=== PATIENT | female | born 1985 | race Caucasian/White ===

== ENCOUNTER 2021-11-03 22:31 | Emergency (ER) | payer MEDICAID ==
[~2021-11-03] VITALS: Ht 180.3 cm; Wt 110.9 kg
[2021-11-03] MEDS ORDERED: LEXAPRO 10MG10 MG PO (22:55)
[2021-11-03 23:16] LABS: BASO # 0.04 K/mm3 (0.02-0.10); EOS # 0.05 K/mm3 (0.04-0.40); EOS % 0.4 % (1.0-5.0); HEMATOCRIT 44.5 % (37.0-47.0); HEMOGLOBIN 14.8 g/dL (12.5-16.0); LYMPH# 1.43 K/mm3 (1.50-4.00); MEAN CELL VOLUME 89 fl (78-100); MEAN CORPUSCULAR HEMOGLOBIN 30 pg (27-31); MEAN CORPUSCULAR HGB CONC 33 g/dL (33-37); MEAN PLATELET VOLUME 11.3 fl (7.4-10.4); MONO # 0.66 K/mm3 (0.20-0.80); NEU # 10.13 K/mm3 (1.40-6.50); PLATELET COUNT 292 K/mm3 (130-400); RED BLOOD COUNT 5.01 M/mm3 (4.10-5.30); RED CELL DISTRIBUTION WIDTH 12.9 % (11.5-14.5); WHITE BLOOD COUNT 12.3 K/mm3 (4.8-10.8)
[2021-11-03 23:25] LABS: POTASSIUM 3.8 mmol/L (3.5-5.1)
[2021-11-03 23:26] LABS: CALCIUM 9.4 mg/dL (8.3-10.5)
[2021-11-03 23:27] LABS: TOTAL PROTEIN 6.9 g/dL (6.4-8.3)
[2021-11-03 23:29] LABS: TOTAL BILIRUBIN 0.3 mg/dL (0.2-1.2)
[2021-11-04 01:32] LABS: URINE APPEARANCE HAZY; URINE BILIRUBIN NEGATIVE (NEGATIVE); URINE BLOOD NEGATIVE (NEGATIVE); URINE COLOR YELLOW; URINE GLUCOSE NEGATIVE (NEGATIVE); URINE KETONE NEGATIVE (NEGATIVE); URINE LEUKOCYTE ESTERASE TRACE (NEGATIVE); URINE NITRATE NEGATIVE (NEGATIVE); URINE PROTEIN(semi-quant) TRACE (NEGATIVE); URINE UROBILINOGEN NORMAL (NORMAL)
[2021-11-04 01:33] LABS: URINE MUCUS PRESENT (NOT PRESENT)
[2021-11-04] MEDS ORDERED: NORCO 325 MG-51 TA1 PO (02:57)
[2021-11-04] MEDS ORDERED: CYCLOBENZAPRINE10 M1 PO (02:57)
[2021-11-04 03:15] VITALS: BP 108/63
== END 2021-11-04 04:25 | disposition home or self-care (01) ==
LOC: ED 22:31
PROVIDERS: Nurse Practitioner
DX: M62.830 Muscle spasm of back (principal); K59.00 Constipation, unspecified
CPT/HCPCS: J1885; J2270; J2360; J2405; J3010; J3360